=== PATIENT | female | born 1990 | race Caucasian/White ===

== ENCOUNTER 2024-05-21 20:44 | Emergency (ER) | payer SELFPAY ==
[~2024-05-21] VITALS: Ht 162.6 cm; Wt 75.0 kg
[2024-05-21] MEDS ORDERED: LIDOcaine HCl 1% (Local Anesth.) 20 ML VIAL STI STA (20:58)
[2024-05-21] MEDS ORDERED: NEOMYCIN-BACITRACIN-POLYMYXIN 0.5 GM/PAK PAK TOP ONE (21:00)
[2024-05-21] MEDS ORDERED: POVIDONE IODINE 0.5 OZ/BTL TOP ONE (21:00)
[2024-05-21] MEDS ORDERED: SODIUM CHLORIDE 500 ML BTL IR ONE (21:00)
[2024-05-21] MEDS ORDERED: Diph, Acellular Pertussis, Tet 0.5 ML/VIAL (Tdap) SDV IM ONE (21:00)
[2024-05-21] MEDS ORDERED: CEPHALEXIN MONOHYDRATE 500 MG/CAP PO ONE (21:20)
[2024-05-21] MEDS ORDERED: KEFLEX500 MG PO (21:27)
[2024-05-21 21:46] VITALS: BP 128/79
== END 2024-05-21 21:46 | disposition home or self-care (01) | DRG 605 ==
LOC: ED 20:44
PROC: 0HQKXZZ Repair Right Lower Leg Skin, External Approach (ICD-10-PCS; principal; 2024-05-21)
DX: S81.011A Laceration without foreign body, right knee, initial encounter (principal); W01.0XXA Fall on same level from slipping, tripping and stumbling without subsequent striking against object, initial encounter; Y92.009 Unspecified place in unspecified non-institutional (private) residence as the place of occurrence of the external cause

== ENCOUNTER 2024-08-14 14:27 | Emergency (ER) | payer SELFPAY ==
[2024-08-14] VITALS (8 sets, daily range): BP systolic 130–155; BP diastolic 95–107
[~2024-08-14] VITALS: Ht 162.6 cm; Wt 79.0 kg
[~2024-08-14 14:27] MED LIST: KEFLEX500 MG PO
[2024-08-14] MEDS ORDERED: ONDANSETRON HCl 4 MG/2 ML SDV IV ONE (16:15)
[2024-08-14] MEDS ORDERED: KETOROLAC TROMETHAMINE 15 MG/ML SDV IV ONE (16:15)
[2024-08-14 16:39] LABS: URINE BLOOD DIPSTICK Small (NEGATIVE); URINE COLOR Yellow; URINE GLUCOSE - DIPSTICK Negative (NEGATIVE); URINE KETONE 15 mg/dL (NEGATIVE); URINE LEUK ESTERASE Trace (NEGATIVE); URINE NITRITE - DIPSTICK Negative (Negative); URINE PH 8.5 (4.5-8.0); URINE PROTEIN - DIPSTICK 30 mg/dL (NEG-TRACE)
[2024-08-14 16:48] LABS: BASO% 0.3 % (0-3); EOS% 0.3 % (0-8); HEMATOCRIT 44.6 % (37.0-47.0); HEMOGLOBIN 15.1 g/dl (12.0-16.0); IMMATURE GRANULOCYTES 0.2 % (0.0-5.0); LYMPH% 12.5 % (15-41); MEAN CELL VOLUME 89.2 fL CALC (80.0-100.0); MEAN CORPUSCULAR HGB 30.2 pG CALC (26.0-32.0); MEAN CORPUSCULAR HGB CONC 33.9 g/dL CAL (32.0-36.0); MONO% 6.5 % (2-13); NEUT# 9.79 thou/uL (2.00-7.15); NEUT% 80.2 % (42-76)
[2024-08-14 16:51] LABS: URINE AMORPH SEDIMENT MODERATE hpf (NONE-FEW); URINE BACTERIA MANY hpf; URINE SQUAMOUS EPITHELIAL CELL MODERATE EPI/hpf (0-FEW); URINE WBC 0-2 WBC/hpf (0-5)
[2024-08-14 16:52] LABS: URINE HYALINE CAST FEW lpf (NONE-RARE)
[2024-08-14 17:08] LABS: ALBUMIN 4.8 g/dL (3.2-5.0); BILIRUBIN, TOTAL 0.4 mg/dL (0.02-1.3); CREATININE 0.7 mg/dL (0.5-1.0); POTASSIUM 3.6 mmol/l (3.5-5.1); TOTAL PROTEIN 7.9 g/dL (6.3-8.2)
[2024-08-14] MEDS ORDERED: LIDOCAINE VISCOUS 2% 15 ML UDC PO ONE (18:55)
[2024-08-14] MEDS ORDERED: ALUM & MAG HYDROX-SIMETHICONE 30 ML PO ONE (18:55)
[2024-08-14] MEDS ORDERED: ONDANSETRON4 MG PO (20:17)
[2024-08-14] MEDS ORDERED: ONDANSETRON 4 MG/TAB ODT PO ONE (20:20)
== END 2024-08-14 20:53 | disposition home or self-care (01) | DRG 392 ==
LOC: ED 14:27
PROVIDERS: Family Medicine
DX: R11.2 Nausea with vomiting, unspecified (principal); A08.4 Viral intestinal infection, unspecified
CPT/HCPCS: J1885; J2405; Q9967